=== PATIENT | female | born 1955 | race Caucasian/White ===

== ENCOUNTER 2017-11-16 22:01 | Observation (INO) ==
--- NOTE | 2017-11-16 22:05 | Emergency Department Note ---
Disposition Clinical Impression: Chest pain Qualifiers: Chest pain type: unspecified Qualified Code(s): R07.9 - Chest pain, unspecified Disposition: Admitted As Inpatient Condition: Fair Referrals: NONE,PCP [Primary Care Provider] - Forms: ED Satisfaction Letter General Adult HPI - General Chief complaint: ED Chest Pain Stated complaint: chest pain Nursing Notes Reviewed: Yes Vital Signs Reviewed: Yes - History of Present Illness HPI Narrative: 62-year-old female presents emergency Department with chest pain that started 4 hours ago. Patient states that this started from the back, radiated to the front, and felt like the chest pain sensation she had previously right before her bypass surgery. Patient states that she was on a trip from [place], riding back home when it started. Patient describes the chest pain as a pressure. She was also having nausea with it as well. Vomited once. Patient states that currently, she just feels weird like something is wrong in her chest. Patient has never been here at [facility]. Patient states that she was recently in the hospital. Patient states she fell at home. Patient has had no falls recently. Patient states that she has been unable to ambulate after breaking her right ankle. Patient currently not on any blood thinners. She denies any previous history of blood clots. Denies any unilateral leg swelling. - Related Data Allergies Allergy/AdvReac Type Severity Reaction Status Date / Time ciprofloxacin Allergy See Verified 11/16/17 22:14 Comments baclofen Allergy See Uncoded 11/16/17 22:14 Comments reopro Allergy See Uncoded 11/16/17 22:14 Comments tape Allergy Redness of Uncoded 11/16/17 22:14 Skin All systems ED: reviewed and negative except as stated. Review of Systems: As Per HPI Cardiovascular: Reports: chest pain. Denies: syncope Respiratory: Reports: dyspnea. Denies: cough Gastrointestinal: Reports: nausea, vomiting. Denies: abdominal pain Genitourinary: Denies: urgency, dysuria, frequency Musculoskeletal: Denies: back pain Integumentary: Denies: rash Neurological: Denies: headache, weakness, numbness, paresthesias Hematological/Lymphatic: Denies: easy bleeding Physical Exam - General General appearance: alert - Head Head exam: atraumatic, normocephalic - Eye Eye exam: Present: EOMI. Absent: scleral icterus - ENT ENT exam: normal oropharynx, mucous membranes moist - Neck Neck exam: Present: trachea midline. Absent: tenderness, meningismus - Chest Chest inspection: Present: normal inspection, symmetric chest wall rise - Respiratory Respiratory exam: Present: normal lung sounds bilaterally. Absent: respiratory distress, accessory muscle use - Cardiovascular Cardiovascular exam: Present: regular rate, normal rhythm, normal heart sounds - Abdominal Exam Abdominal exam: Present: soft, Non-Tender. Absent: distention, guarding, rebound - Expanded Lower Extremity Exam Lower leg exam: Absent: tenderness, swelling, palpable cord - Back Exam Back exam: Present: normal inspection, full ROM - Neurological Exam Neurological exam: Present: alert, oriented X3 - Psychiatric Psychiatric exam: Present: normal affect, normal mood - Skin Skin exam: Present: warm, dry, intact. Absent: diaphoresis Course Vital Signs Temperature 98.1 F 11/16/17 22:14 Pulse Rate 75 11/16/17 22:14 Respiratory Rate 20 11/16/17 22:14 Blood Pressure 134/89 11/16/17 22:14 O2 Sat by Pulse Oximetry 96 11/16/17 22:14 Temperature 98.1 F 11/16/17 22:14 Pulse Rate 68 11/17/17 00:41 Respiratory Rate 15 11/17/17 00:41 Blood Pressure 205/97 11/17/17 00:41 O2 Sat by Pulse Oximetry 96 11/17/17 00:41 Oxygen Delivery Oxygen Delivery Room Air Medical Decision Making - [facility] Narrative Medical decision making narrative: 62-year-old female presents to emergency department with concern for chest pain. Patient currently having chest pain 4 out of 10 right now. We will give patient aspirin. We will also give nitroglycerin. EKG does not reveal any evidence of STEMI, but has nonspecific ST changes. Troponin is within normal limits. Patient has elevated creatinine. She appears dry. We will hydrate her with fluids. Patient has an elevated d-dimer as there is some concern that she could possibly have a PE due to recent immobilization, inability to ambulate , and recent travel, with the chest pain. Chest x-ray did not reveal any evidence of cardiac abnormality. D-dimer was mildly elevated. We obtain a chest CTA. Revealed no evidence of pulmonary embolus. It did reveal some small bump lateral pulmonary nodules of which the patient is artery aware of. After speaking with patient, she reported that her creatinine was acting better than where her creatinine has been in the past. She has received a liter of fluids. Sublingual nitroglycerin relieved her symptoms completely. Patient was still hypertensive so we administered nitro paste. Patient hemodynamically stable and not in any acute distress at time of admission to the hospital. Patient agree with the plan for admission. Vital Signs Temperature 98.1 F 11/16/17 22:14 Pulse Rate 75 11/16/17 22:14 Respiratory Rate 20 11/16/17 22:14 Blood Pressure 134/89 11/16/17 22:14 O2 Sat by Pulse Oximetry 96 11/16/17 22:14 Temperature 98.1 F 11/16/17 22:14 Pulse Rate 68 11/17/17 00:41 Respiratory Rate 15 11/17/17 00:41 Blood Pressure 205/97 11/17/17 00:41 O2 Sat by Pulse Oximetry 96 11/17/17 00:41 Oxygen Delivery Oxygen Delivery Room Air Chest X-Ray 11/16/17 22:04 IMPRESSION: No significant findings in the chest. D/ / Shuan Phipps MD / Shaun Phipps MD Interpreting Provider: Shaun Phipps MD Chest CTA 11/17/17 00:00 IMPRESSION: No evidence of pulmonary embolism or acute pulmonary abnormality. Small bilateral pulmonary nodules measuring up to 0.4 cm. RECOMMENDATIONS: Fleischner Society guidelines for follow-up and management of incidentally detected pulmonary nodules: Multiple Solid Nodules: Nodule size less than 6 mm In a low-risk patient, no routine follow-up. In a high-risk patient, optional CT at 12 months. - Low risk patients include individuals with minimal or absent history of smoking and other known risk factors. - High risk patients include individuals with a history or smoking or known risk factors. Radiology 2017 http://pubs.[facility]na.org/doi/full/10.1148/radiol.[email or web address] D/ / Deshawn Sarkar MD / Deshawn Sarkar MD Interpreting Provider: Deshawn Sarkar MD - Lab Data Result diagrams: 11/16/17 22:14 11/16/17 22:14 Lab Results 11/16/17 11/16/17 11/16/17 Range/Units 22:14 22:14 22:14 WBC 6.7 (4.3-11.1) K/mcL RBC 3.76 L (3.82-4.97) M/mcL Hgb 11.0 L (11.5-15.4) g/dL Hct 35.0 L (35.3-44.9) % MCV 93.1 (83.0-100.0) fL MCH 29.3 (28.0-33.3) pg MCHC 31.4 L (31.6-35.5) g/dL RDW 14.3 (11.5-14.5) % Plt Count 200 (140-400) K/mcL MPV 10.5 (9.4-12.4) fL Immature Gran % 0.3 (0-4) % Seg Neutrophils % 71.9 % Lymphocytes % 16.7 % Monocytes % 6.0 % Eosinophils % 4.8 % Basophils % 0.3 % Neutrophils # 4.8 (1.6-8.9) K/mcL Lymphocytes # 1.1 (0.6-4.6) K/mcL Monocytes # 0.4 (0.0-1.3) K/mcL Eosinophils # 0.3 (0.0-0.6) K/mcL Basophils # 0.0 (0.0-0.2) K/mcL D-Dimer (0-500) ng/mLFEU Sodium 143 (136-145) mEq/L Potassium 3.7 (3.5-5.1) mEq/L Chloride 107 (98-107) mEq/L Carbon Dioxide 27 (23-29) mEq/L BUN 30 H (8-23) mg/dL Creatinine 1.59 H (0.60-1.20) mg/dL Est GFR ( Amer) 40 L (> 60) Est GFR (Non-Af Amer) 33 L (> 60) BUN/Creatinine Ratio 19 (6-26) Glucose 204 H (70-105) mg/dL Calculated Osmolality 308 H (280-300) Calcium 9.1 (8.6-10.3) mg/dL Troponin I < 0.03 (< 0.04) ng/mL B-Natriuretic Peptide 423 H (Less than 100) pg/mL 11/16/17 Range/Units 22:29 WBC (4.3-11.1) K/mcL RBC (3.82-4.97) M/mcL Hgb (11.5-15.4) g/dL Hct (35.3-44.9) % MCV (83.0-100.0) fL MCH (28.0-33.3) pg MCHC (31.6-35.5) g/dL RDW (11.5-14.5) % Plt Count (140-400) K/mcL MPV (9.4-12.4) fL Immature Gran % (0-4) % Seg Neutrophils % % Lymphocytes % % Monocytes % % Eosinophils % % Basophils % % Neutrophils # (1.6-8.9) K/mcL Lymphocytes # (0.6-4.6) K/mcL Monocytes # (0.0-1.3) K/mcL Eosinophils # (0.0-0.6) K/mcL Basophils # (0.0-0.2) K/mcL D-Dimer 847 H (0-500) ng/mLFEU Sodium (136-145) mEq/L Potassium (3.5-5.1) mEq/L Chloride (98-107) mEq/L Carbon Dioxide (23-29) mEq/L BUN (8-23) mg/dL Creatinine (0.60-1.20) mg/dL Est GFR ( Amer) (> 60) Est GFR (Non-Af Amer) (> 60) BUN/Creatinine Ratio (6-26) Glucose (70-105) mg/dL Calculated Osmolality (280-300) Calcium (8.6-10.3) mg/dL Troponin I (< 0.04) ng/mL B-Natriuretic Peptide (Less than 100) pg/mL - EKG Data EKG #1 EKG attestation: Yes I reviewed and interpreted this EKG. EKG results narrative: 22:05 Ventricular rate 77 bpm, LA interval 167 ms, QS duration 102 ms, QT 404 ms, QTC 435 ms Sinus rhythm with a ventricular rate 77 bpm. There are nonspecific ST segment changes on electrocardiogram. No previous study to compare this one to. No evidence of STEMI at this time.
[2017-11-16 22:25] LABS: Basophils % 0.3 %; Eosinophils # 0.3 K/mcL (0.0-0.6); Eosinophils % 4.8 %; Immature Granulocytes % 0.3 % (0-4); Lymphocytes # 1.1 K/mcL (0.6-4.6); Lymphocytes % 16.7 %; Mean Corpuscular HGB Conc 31.4 g/dL (31.6-35.5); Mean Corpuscular Hemoglobin 29.3 pg (28.0-33.3); Mean Corpuscular Volume 93.1 fL (83.0-100.0); Mean Platelet Volume 10.5 fL (9.4-12.4); Monocytes # 0.4 K/mcL (0.0-1.3); Neutrophils # 4.8 K/mcL (1.6-8.9); Platelet Count 200 K/mcL (140-400); Red Blood Count 3.76 M/mcL (3.82-4.97); Red Cell Distribution Width 14.3 % (11.5-14.5); Segmented Neutrophils % 71.9 %
[2017-11-16] MEDS ORDERED: Aspirin 81 MG TAB.CHEW PO ONE (22:33)
[2017-11-16 22:47] LABS: BUN/Creatinine Ratio 19 (6-26); Blood Urea Nitrogen 30 mg/dL (8-23); Calcium 9.1 mg/dL (8.6-10.3); Carbon Dioxide 27 mEq/L (23-29); Chloride 107 mEq/L (98-107); Glucose 204 mg/dL (70-105); Osmolality,Calculated 308 (280-300); Potassium 3.7 mEq/L (3.5-5.1); Sodium 143 mEq/L (136-145); Troponin I < 0.03 ng/mL (< 0.04); eGFR For African Americans 40 (> 60); eGFR For Non-African Americans 33 (> 60)
[2017-11-16] MEDS ORDERED: Isovue-370 500 ML INFUS..BTL IV ONE (22:52)
[2017-11-16] MEDS ORDERED: 0.9 % Sodium Chloride 1,000 ML IVC ONE (23:02)
[2017-11-16] MEDS: Nitroglycerin 0.4 MG TAB.SUBL SL PRN ×2 (23:10→23:18)
[2017-11-16] MEDS ORDERED: Nitroglycerin 1 INCH/GM PACKET TP ONE (23:42)
--- NOTE | 2017-11-17 01:02 | Emergency Department Note ---
Disposition Clinical Impression: Chest pain Disposition: Admitted As Inpatient Condition: Fair Referrals: NONE,PCP [Primary Care Provider] - Forms: ED Satisfaction Letter General Adult HPI - General Chief complaint: ED Chest Pain Stated complaint: chest pain Source: family - History of Present Illness Pain Scale: 2 - Related Data Allergies Allergy/AdvReac Type Severity Reaction Status Date / Time ciprofloxacin Allergy See Verified 11/16/17 22:14 Comments baclofen Allergy See Uncoded 11/16/17 22:14 Comments reopro Allergy See Uncoded 11/16/17 22:14 Comments tape Allergy Redness of Uncoded 11/16/17 22:14 Skin Cardiovascular: Reports: chest pain. Denies: syncope Respiratory: Reports: dyspnea. Denies: cough Gastrointestinal: Reports: nausea, vomiting. Denies: abdominal pain Genitourinary: Denies: urgency, dysuria, frequency Musculoskeletal: Denies: back pain Integumentary: Denies: rash Neurological: Denies: headache, weakness, numbness, paresthesias Hematological/Lymphatic: Denies: easy bleeding Past Medical History - Past Medical History Medical history: Reports: coronary artery disease, diabetes Psychiatric history: Reports: no psych history - Social History Smoking Status: Never smoker Smokeless Tobacco Status: No Alcohol use: Reports: none Drug use: Reports: none Physical Exam - General General appearance: alert Course Vital Signs Temperature 98.1 F 11/16/17 22:14 Pulse Rate 75 11/16/17 22:14 Respiratory Rate 20 11/16/17 22:14 Blood Pressure 134/89 11/16/17 22:14 O2 Sat by Pulse Oximetry 96 11/16/17 22:14 Temperature 98.1 F 11/16/17 22:14 Pulse Rate 68 11/17/17 00:41 Respiratory Rate 15 11/17/17 00:41 Blood Pressure 205/97 11/17/17 00:41 O2 Sat by Pulse Oximetry 96 11/17/17 00:41 Oxygen Delivery Oxygen Delivery Room Air Medical Decision Making - Lab Data Result diagrams: 11/16/17 22:14 11/16/17 22:14 Lab Results 11/16/17 11/16/17 11/16/17 Range/Units 22:14 22:14 22:14 WBC 6.7 (4.3-11.1) K/mcL RBC 3.76 L (3.82-4.97) M/mcL Hgb 11.0 L (11.5-15.4) g/dL Hct 35.0 L (35.3-44.9) % MCV 93.1 (83.0-100.0) fL MCH 29.3 (28.0-33.3) pg MCHC 31.4 L (31.6-35.5) g/dL RDW 14.3 (11.5-14.5) % Plt Count 200 (140-400) K/mcL MPV 10.5 (9.4-12.4) fL Immature Gran % 0.3 (0-4) % Seg Neutrophils % 71.9 % Lymphocytes % 16.7 % Monocytes % 6.0 % Eosinophils % 4.8 % Basophils % 0.3 % Neutrophils # 4.8 (1.6-8.9) K/mcL Lymphocytes # 1.1 (0.6-4.6) K/mcL Monocytes # 0.4 (0.0-1.3) K/mcL Eosinophils # 0.3 (0.0-0.6) K/mcL Basophils # 0.0 (0.0-0.2) K/mcL D-Dimer (0-500) ng/mLFEU Sodium 143 (136-145) mEq/L Potassium 3.7 (3.5-5.1) mEq/L Chloride 107 (98-107) mEq/L Carbon Dioxide 27 (23-29) mEq/L BUN 30 H (8-23) mg/dL Creatinine 1.59 H (0.60-1.20) mg/dL Est GFR ( Amer) 40 L (> 60) Est GFR (Non-Af Amer) 33 L (> 60) BUN/Creatinine Ratio 19 (6-26) Glucose 204 H (70-105) mg/dL Calculated Osmolality 308 H (280-300) Calcium 9.1 (8.6-10.3) mg/dL Troponin I < 0.03 (< 0.04) ng/mL B-Natriuretic Peptide 423 H (Less than 100) pg/mL 11/16/17 Range/Units 22:29 WBC (4.3-11.1) K/mcL RBC (3.82-4.97) M/mcL Hgb (11.5-15.4) g/dL Hct (35.3-44.9) % MCV (83.0-100.0) fL MCH (28.0-33.3) pg MCHC (31.6-35.5) g/dL RDW (11.5-14.5) % Plt Count (140-400) K/mcL MPV (9.4-12.4) fL Immature Gran % (0-4) % Seg Neutrophils % % Lymphocytes % % Monocytes % % Eosinophils % % Basophils % % Neutrophils # (1.6-8.9) K/mcL Lymphocytes # (0.6-4.6) K/mcL Monocytes # (0.0-1.3) K/mcL Eosinophils # (0.0-0.6) K/mcL Basophils # (0.0-0.2) K/mcL D-Dimer 847 H (0-500) ng/mLFEU Sodium (136-145) mEq/L Potassium (3.5-5.1) mEq/L Chloride (98-107) mEq/L Carbon Dioxide (23-29) mEq/L BUN (8-23) mg/dL Creatinine (0.60-1.20) mg/dL Est GFR ( Amer) (> 60) Est GFR (Non-Af Amer) (> 60) BUN/Creatinine Ratio (6-26) Glucose (70-105) mg/dL Calculated Osmolality (280-300) Calcium (8.6-10.3) mg/dL Troponin I (< 0.04) ng/mL B-Natriuretic Peptide (Less than 100) pg/mL Attestation Statement - Attestation Attestation: I examined this patient and my medical decision-making was reviewed with the Resident Physician, Dr. Pagan. I agree with the documented findings, disposition and treatment plan as described except to the extent set forth below. Patient is a 62-year-old white female with a prior history of coronary artery disease status post CABG who presents to the emergency department 4 hours after experiencing left-sided substernal chest pain. This pain began while she was traveling back from [place] and she decided to stop here for evaluation. Patient was concerned because this felt very similar to her pain that she had with her prior heart attack. Patient states she was still having pain 5 out of 10 in severity nonradiating associated with some mild nausea and one episode of emesis prior to arrival. Patient also currently has her right foot in a boot following fracture of the toe and has had decreased mobilization lower extremity for the past week. Patient denies any calf pain, no significant shortness of breath. Patient with no prior history of DVT or PE. I agree with patient's physical exam findings as documented. Vital signs are stable on arrival. EKG shows some subtle nonspecific ST changes but no old EKG for comparison. Patient received aspirin and nitroglycerin with complete relief of pain similar Nitropaste was ordered. Laboratory evaluation and chest x-ray were unremarkable CTA of the chest was negative for PE. Patient will be admitted for unstable angina case was discussed with the hospitalist who accepted patient for further management.
[2017-11-17] MEDS ORDERED: 0.9 % Sodium Chloride 1,000 ML IVC ONE (01:11)
--- NOTE | 2017-11-17 01:55 | Internal Med History&Physical ---
<Chaitanya Kwan - Last Filed: 11/17/17 02:48> Date of Encounter: 11/17/17 Time of Encounter: 01:47 Internal Medicine - H&P: HPI Chief complaint: chest pain Admitted From: Home Plans for Post Hospital Care: Home History of present illness: Ms. Davis is a 62 year old female pmhx of T2DM insulin dependent, anemia, CAD 2x sents to RCA in 1999 + CABG in 2012, CKD3, HTN, HLD presents with pressure chest pain that starts in the back and radiates to front and now radiates from front to back. Pain is 8/10, similar to previous ACS. Pain has steadily increased, and was relived with nitro in ED. Patient was driving back from [place] when she started developing this chest pain. Patient was with daughter. They stopped to get food, and she instantly vomited her food up. Pain continued getting worse and 4 hours later they stopped at [place]. Patient denies SOB, fever, chills, edema, n/t. Patient was hospitalized in 09/2017 for pneumonia and elevated blood sugars. Patient states she gets headaches when her blood pressure is high, she currently has headache. Past Med Surg Social Fam HX - Past Medical History Medical history: coronary artery disease, diabetes Additional medical history: anemia, chronic sinusitis, RLS, neuropathy, kidney dz Psychiatric history: no psych history - Past Surgical History Additional surgical history: stents - Social History Smoking Status: Never smoker Smokeless Tobacco Status: No Alcohol use: none Drug use: none Internal Medicine - H&P: Meds 3 Allergy/AdvReac Type Severity Reaction Status Date / Time ciprofloxacin Allergy See Verified 11/16/17 22:14 Comments baclofen Allergy See Uncoded 11/16/17 22:14 Comments reopro Allergy See Uncoded 11/16/17 22:14 Comments tape Allergy Redness of Uncoded 11/16/17 22:14 Skin All Systems PM: A 10-system review of systems was performed and is negative for pertinent findings except as documented above in the HPI. - Constitutional Constitutional: no chills, no fever(s), no night sweats - EENT Eyes: no change in vision, no discharge, no pain, no photophobia Ears: no ear discharge, no ear pain, no tinnitus Nose, mouth and throat: no dysphagia, no nasal discharge, no neck pain, no sore throat - Cardiovascular Cardiovascular ROS IM: chest pain, no diaphoresis, no dyspnea, no dyspnea on exertion, no lightheadedness, no palpitations, no syncope - Respiratory Respiratory: no cough, no dyspnea, no wheezing, no excessive phlegm production - Gastrointestinal Gastrointestinal: no abdominal pain, no diarrhea, no hematemesis, no hematochezia, no melena, no nausea, no vomiting - Genitourinary Genitourinary: no change in urinary stream, no dysuria, no flank pain, no hematuria - Musculoskeletal Musculoskeletal ROS IM: no numbness, no tingling - Integumentary Integumentary IM: no rash, no unusual bruising - Neurological Neurological ROS: no confusion, no convulsions, no focal weakness, no numbness, no tingling, no tremor(s) - Hematologic/Lymphatic Hematologic/Lymphatic: no easy bruising - Constitutional Vitals: Temp Pulse Resp BP Pulse Ox 98.1 F 68 15 205/97 96 11/16/17 22:14 11/17/17 00:41 11/17/17 00:41 11/17/17 00:41 11/17/17 00:41 General appearance: Present: cooperative, mild distress, pleasant, answers questions appropriately - Head Head exam: Present: atraumatic, normocephalic - Eye Eye exam: Present: PERRL, conjuntiva pink, sclera anicteric Pupils: Present: PERRL - Neck Neck exam general surgery: Present: supple, trachea midline. Absent: lymphadenopathy - Respiratory Respiratory exam: Present: CTAB. Absent: accessory muscle use, rales, rhonchi, wheezes - Cardiovascular Cardiovascular exam: Present: tachycardia. Absent: diastolic murmur, gallop, rubs, systolic murmur - GI/Abdominal GI/Abdominal exam: Present: normal bowel sounds, soft, no peritoneal signs. Absent: distended, guarding, hepatomegaly, rebound, rigid, tenderness - Extremities Exam Extremities exam: Present: warm, radial pulses palpable and symmetrical. Absent : calf tenderness, cyanotic, pedal edema Additional comments: patient has right foot brace where she has a headled fractured r foot. - Neurological Exam Neurological exam: Present: CN II-XII intact, oriented X3, no focal deficits. Absent: pronater drift, facial droop, speech deficit - Skin Skin exam: Present: dry, intact Internal Med - H&P Results - Labs CBC & Chem 7: 11/16/17 22:14 11/16/17 22:14 Labs: Short CBC 11/16/17 Range/Units 22:14 WBC 6.7 (4.3-11.1) K/mcL Hgb 11.0 L (11.5-15.4) g/dL Hct 35.0 L (35.3-44.9) % Plt Count 200 (140-400) K/mcL Neutrophils # 4.8 (1.6-8.9) K/mcL BMP 11/16/17 22:14 Sodium 143 Potassium 3.7 Chloride 107 Carbon Dioxide 27 BUN 30 H Creatinine 1.59 H Glucose 204 H Calcium 9.1 Cardiac Enzymes 11/16/17 Range/Units 22:14 Troponin I < 0.03 (< 0.04) ng/mL - Impressions ITS Impressions Chest X-Ray 11/16/17 22:04 IMPRESSION: No significant findings in the chest. D/ / Shaun Phipps MD / Shaun Phipps MD Interpreting Provider: Shaun Phipps MD Chest CTA 11/17/17 00:00 IMPRESSION: No evidence of pulmonary embolism or acute pulmonary abnormality. Small bilateral pulmonary nodules measuring up to 0.4 cm. RECOMMENDATIONS: Fleischner Society guidelines for follow-up and management of incidentally detected pulmonary nodules: Multiple Solid Nodules: Nodule size less than 6 mm In a low-risk patient, no routine follow-up. In a high-risk patient, optional CT at 12 months. - Low risk patients include individuals with minimal or absent history of smoking and other known risk factors. - High risk patients include individuals with a history or smoking or known risk factors. Radiology 2017 http://pubs.rsna.org/doi/full/10.1148/radiol.[email or web address] D/ / Deshawn Sarkar MD / Deshawn Sarkar MD Interpreting Provider: Deshawn Sarkar MD - Assessment and plan (1) Hypertensive emergency Current Visit: Yes Status: Acute Assessment and plan: BP on admission ~200/~100's with possible cardiac as end organ damage. Patient missed PM Rx. D-dimer was elevated in ED, CTA was performed and r/o PE. - goal MAP decrease 25% in first 2 hours - restart home RX; IV hydralazine + lopressor - monitor UOP, Cr, mental status (2) Chest pain Current Visit: Yes Status: Acute Assessment and plan: Chest pain is similar to previous CAD, occurred at rest. EKG showed sinus rhythm, and trops negative x1. HEART score 6, patient is moderate risk. - trend trop - consider cardiology consult if CP does not resolve with BP control. - provide O2 support when SpO2 drops below 92%, nitro, ASA - continue home Rx - hold ACEI due to possible ART on CKD - schedule stress Qualifiers: Chest pain type: unspecified Qualified Code(s): R07.9 - Chest pain, unspecified (3) Fracture of right foot affected by diabetic neuropathy Current Visit: Yes Status: Acute Assessment and plan: occurred previously. patient has peripheral neuropathy due to diabetes. Well healed currently. Qualifiers: Qualified Code(s): S92.901A - Unspecified fracture of right foot, initial encounter for closed fracture; E11.40 - Type 2 diabetes mellitus with diabetic neuropathy, unspecified (4) HTN (hypertension) Current Visit: Yes Status: Acute Assessment and plan: chronic. home meds include amlodipine, hydralazine, isosorbide dinitrate, lisinopril, metoprolol, torsemide. Qualifiers: Qualified Code(s): I10 - Essential (primary) hypertension (5) Hyperlipidemia Current Visit: Yes Status: Acute Assessment and plan: continue home statin Qualifiers: Qualified Code(s): E78.5 - Hyperlipidemia, unspecified (6) Diabetes type 2, uncontrolled Current Visit: Yes Status: Acute Assessment and plan: poorly controlled diabetes. patient religiously checks BG and does not miss doses of insulin. Patient's recent BG range is 40-600. - diabetic diet - low sliding scale - continue basaglar 160 Qualifiers: Qualified Code(s): E11.65 - Type 2 diabetes mellitus with hyperglycemia; Z79.4 - skilled nursing (current) use of insulin (7) Chronic anemia Current Visit: Yes Status: Acute Assessment and plan: hgb 11.0 on admission. currently stable, will continue to monitor (8) CKD stage 3 due to type 2 diabetes mellitus Current Visit: Yes Status: Acute Assessment and plan: reported by patient. Will continue to follow. Cr on admission 1.59 and eGFR 40 , baselines unknown. - renal diet - avoid nephrotoxins, renal dose. (9) CAD (coronary artery disease) Current Visit: Yes Status: Acute Assessment and plan: known hx of ACS. stent placed in RCA in 1999, had to be restented a few years after. CABG in 2013. Qualifiers: Qualified Code(s): I25.10 - Atherosclerotic heart disease of [place] coronary artery without angina pectoris (10) DVT prophylaxis Current Visit: Yes Status: Acute Assessment and plan: SQ heparin (11) Elevated brain natriuretic peptide (BNP) level Current Visit: Yes Status: Acute Assessment and plan: BNP elevated on admission. unsure if patient has CHF, review of her medications would suggest that she likely does. - echo ordered - Time Spent With Patient Total time spent is greater than 50% in coordination of care (as documented) at patient's floor/unit and/or counseling patient: <Kaela Prater - Last Filed: 11/17/17 03:05> Date of Encounter: 11/17/17 Time of Encounter: 01:30 Internal Medicine - H&P: HPI History of present illness: Ms. Davis is a 62 year old female All Systems PM: A 10-system review of systems was performed and is negative for pertinent findings except as documented above in the HPI. - Constitutional Vitals: Temp Pulse Resp BP Pulse Ox 98.1 F 68 15 205/97 96 11/16/17 22:14 11/17/17 00:41 11/17/17 00:41 11/17/17 00:41 11/17/17 00:41 Internal Med - H&P Results - Labs CBC & Chem 7: 11/16/17 22:14 11/16/17 22:14 - Attending Attestation I examined this patient and my medical decision-making was reviewed with the resident physician, Chaitanya Kwan. I agree with the documented findings, disposition and treatment plan as described with any changes as documented below. 62-year-old female patient with history of type 2 diabetes, hypertension, hyperlipidemia, coronary artery disease status post stents and CABG, chronic kidney disease stage III who presented to the ER with complaints of chest pain and high blood pressure. She was traveling back home from [place] when she began to have this chest pain. It initially started in the back and radiated to the front of the chest and across her shoulder. She had been doing well prior to this episode. She denies any palpitations. She does complain of headache. Chest pain improved after she received nitroglycerin and aspirin in the ER. On examination, patient is awake and alert. Heart sounds are normal. Breath sounds are normal. Chest x-ray does not show any acute process. CT angiogram does not show any dissection. EKG does not show any acute ST segment changes. Hypertensive emergency: Patient having had severe hypertension along with chest pain. Troponins are negative. We will place patient on intravenous medications to control her blood pressure better. Target systolic blood pressure of less than 180. Chest pain: Given her history of coronary artery disease and CABG, concern for ACS. Will place patient in hospital. Trend troponins. Telemetry monitoring. If troponins are negative and blood pressure improved, consider stress test. Diabetes mellitus type 2: Monitor blood sugars. Sliding scale insulin. Diabetic diet when patient is able to eat. Chronic kidney disease stage III: Unknown baseline. We will follow renal function closely especially as patient received IV contrast. Gentle hydration overnight. - Assessment and plan (1) Hypertensive emergency Current Visit: Yes Status: Acute (2) Chest pain Current Visit: Yes Status: Acute Qualifiers: Chest pain type: unspecified Qualified Code(s): R07.9 - Chest pain, unspecified (3) Fracture of right foot affected by diabetic neuropathy Current Visit: Yes Status: Chronic Qualifiers: Encounter type: subsequent encounter Fracture type: closed Fracture healing: with routine healing Qualified Code(s): S92.901D - Unspecified fracture of right foot, subsequent encounter for fracture with routine healing; E11.40 - Type 2 diabetes mellitus with diabetic neuropathy, unspecified (4) HTN (hypertension) Current Visit: Yes Status: Chronic Qualifiers: Qualified Code(s): I10 - Essential (primary) hypertension (5) Hyperlipidemia Current Visit: Yes Status: Chronic Qualifiers: Qualified Code(s): E78.5 - Hyperlipidemia, unspecified (6) Diabetes type 2, uncontrolled Current Visit: Yes Status: Chronic Qualifiers: Qualified Code(s): E11.65 - Type 2 diabetes mellitus with hyperglycemia; Z79.4 - skilled nursing (current) use of insulin (7) Chronic anemia Current Visit: Yes Status: Chronic (8) CKD stage 3 due to type 2 diabetes mellitus Current Visit: Yes Status: Chronic (9) CAD (coronary artery disease) Current Visit: Yes Status: Chronic Qualifiers: Qualified Code(s): I25.10 - Atherosclerotic heart disease of [place] coronary artery without angina pectoris (10) DVT prophylaxis Current Visit: Yes Status: Acute (11) Elevated brain natriuretic peptide (BNP) level Current Visit: Yes Status: Acute - Time Spent With Patient Total time spent is greater than 50% in coordination of care (as documented) at patient's floor/unit and/or counseling patient:
[2017-11-17] MEDS ORDERED: Naloxone 0.4 MG/ML INJ IVP PRN (02:22)
[2017-11-17] MEDS ORDERED: *HR* Metoprolol 5 MG/5 ML VIAL IVP PRN (02:28)
[2017-11-17] MEDS ORDERED: hydrALAZINE 25 MG TABLET PO ONE (02:30)
[2017-11-17] MEDS ORDERED: Insulin DETEMIR 100 UNIT/ML X5UNITS SQ ONE (02:33)
[2017-11-17] MEDS ORDERED: *HR* Dextrose 50 % in Water (Syg) 50 ML SYRINGE IVP PRN (02:35)
[2017-11-17] MEDS ORDERED: D5% in Water 1,000 ML IVC PRN (02:35)
[2017-11-17] MEDS ORDERED: Dextrose Gel 15 GM/37.5 ML TUBE PO PRN ×2 (02:35)
[2017-11-17 04:40] LABS: Prothrombin Time 10.9 Seconds (9.4-12.1)
[2017-11-17] MEDS: *HR* Heparin 5,000 UNIT/ML VIAL SQ SCH ×2 (04:45→18:39)
[2017-11-17 04:55] LABS: Chol/HDL Ratio 4.7 (0-4.9); Phosphorous 3.3 mg/dL (2.7-4.5)
[2017-11-17] MEDS: Insulin LISPRO 300 UNITS/3 ML VIAL SQ SCH ×4 (07:55→20:47)
[2017-11-17] MEDS: niCARdipine 40 MG/200 ML MLS IVC SCH ×2 (07:57→17:50)
[2017-11-17 09:08] LABS: Estimated Average Glucose 157 mg/dl; Hemoglobin A1C 7.1 %
--- NOTE | 2017-11-17 09:21 | Event Note ---
Date of Encounter: 11/17/17 Time of Encounter: 09:18 BP elevated, HTN crisis SBP > 200 Received IV hydralazine dose at 6 a.m in the ED which marked improvement - maybe too well Will attempt to spare IV nicardipine gtt if able Discussed home med with family - will restart norvasc 10 QD hydralazine 25 TID metoprolol 50 q AM, 25 q PM Isosorbide 30 BID Lisinopril 20 BID Avoiding rapid drop in BP Symptom better on bedside exam - headache prominent on admission- this is better
[2017-11-17] MEDS: Aspirin 81 MG TAB.CHEW PO SCH (11:17)
[2017-11-17] MEDS: Torsemide 20 MG TABLET PO SCH (11:18)
[2017-11-17] MEDS: amLODIPine 5 MG TABLET PO SCH (11:18)
[2017-11-17] MEDS: hydrALAZINE 25 MG TABLET PO SCH ×2 (16:13→20:46)
--- NOTE | 2017-11-17 17:19 | Electrocardiograph Report ---
[place] [id number] Test Date: 2017-11-16 Pat Name: Ashley Davis Department: 103 Room: [facility] Gender: F [employer]: SIXTO : 1955 Requested By: Russ Pagan Order Number: [id number] Reading MD: Melissa Burrows Measurements Intervals [place] Rate: 77 P: 47 ID: [id number] QRS: 8 QRSD: 102 T: 73 QT: 404 QTc: 435 Interpretive Statements SINUS RHYTHM NONSPECIFIC ST & T-WAVE ABNORMALITY Electronically Signed On 11-17-2017 17:18:25 EDT by Melissa Burrows
[2017-11-17] MEDS ORDERED: Acetaminophen 325 MG TABLET PO PRN (17:49)
[2017-11-17] MEDS: Lisinopril 20 MG TABLET PO SCH (20:46)
[2017-11-17] MEDS: rOPINIRole 1 MG TABLET PO SCH (22:24)
[2017-11-17] MEDS: Pregabalin 25 MG CAPSULE PO SCH (22:24)
[2017-11-18] MEDS: *HR* Heparin 5,000 UNIT/ML VIAL SQ SCH ×2 (05:18→17:49)
[2017-11-18] MEDS ORDERED: traMADol 50 MG TABLET PO PRN ×2 (05:29→09:08)
[2017-11-18] MEDS: niCARdipine 40 MG/200 ML MLS IVC SCH ×3 (06:34→15:51)
[2017-11-18] MEDS: hydrALAZINE 25 MG TABLET PO SCH ×3 (08:24→21:19)
[2017-11-18] MEDS: Lisinopril 20 MG TABLET PO SCH ×2 (08:25→21:19)
[2017-11-18] MEDS: Pregabalin 25 MG CAPSULE PO SCH ×3 (08:25→21:19)
[2017-11-18] MEDS: Aspirin 81 MG TAB.CHEW PO SCH (08:25)
[2017-11-18] MEDS: Torsemide 20 MG TABLET PO SCH (08:25)
[2017-11-18] MEDS: amLODIPine 5 MG TABLET PO SCH (08:25)
[2017-11-18] MEDS: Insulin LISPRO 300 UNITS/3 ML VIAL SQ SCH ×4 (08:26→20:54)
[2017-11-18 08:52] LABS: Calcium 8.8 mg/dL (8.6-10.3); Potassium 3.2 mEq/L (3.5-5.1)
[2017-11-18] MEDS ORDERED: Acetaminophen 325 MG TABLET PO PRN (09:08)
--- NOTE | 2017-11-18 14:02 | Internal Med Progress Note ---
Date of Encounter: 11/18/17 Time of Encounter: 14:00 - Assessment and plan (1) Chest pain Current Visit: Yes Status: Acute Assessment and plan: Chest pain is similar to previous CAD, occurred at rest. EKG showed sinus rhythm, and trops negative x1. Plan for nuclear stress test in am 2/2 to risk factors Qualifiers: Chest pain type: unspecified Qualified Code(s): R07.9 - Chest pain, unspecified (2) Fracture of right foot affected by diabetic neuropathy Current Visit: Yes Status: Chronic Assessment and plan: occurred previously. patient has peripheral neuropathy due to diabetes. Well healed currently. Qualifiers: Encounter type: subsequent encounter Fracture type: closed Fracture healing: with routine healing Qualified Code(s): S92.901D - Unspecified fracture of right foot, subsequent encounter for fracture with routine healing; E11.40 - Type 2 diabetes mellitus with diabetic neuropathy, unspecified (3) HTN (hypertension) Current Visit: Yes Status: Chronic Assessment and plan: chronic. home meds include amlodipine, hydralazine, isosorbide dinitrate, lisinopril, metoprolol, torsemide. Qualifiers: Hypertension type: essential hypertension Qualified Code(s): I10 - Essential (primary) hypertension (4) Hyperlipidemia Current Visit: Yes Status: Chronic Assessment and plan: continue home statin Qualifiers: Qualified Code(s): E78.5 - Hyperlipidemia, unspecified (5) Diabetes type 2, uncontrolled Current Visit: Yes Status: Chronic Assessment and plan: poorly controlled diabetes. patient religiously checks BG and does not miss doses of insulin. Patient's recent BG range is 40-600. - diabetic diet - low sliding scale - continue basaglar 160 Qualifiers: Qualified Code(s): E11.65 - Type 2 diabetes mellitus with hyperglycemia (6) Chronic anemia Current Visit: Yes Status: Chronic Assessment and plan: hgb 11.0 on admission. currently stable, will continue to monitor (7) CKD stage 3 due to type 2 diabetes mellitus Current Visit: Yes Status: Chronic Assessment and plan: reported by patient. Will continue to follow. Cr on admission 1.59 and eGFR 40 , baselines unknown. - renal diet - avoid nephrotoxins, renal dose. (8) CAD (coronary artery disease) Current Visit: Yes Status: Chronic Assessment and plan: known hx of ACS. stent placed in RCA in 1999, had to be restented a few years after. CABG in 2013. Qualifiers: Associated angina: with unspecified angina Qualified Code(s): I25.119 - Atherosclerotic heart disease of [place] coronary artery with unspecified angina pectoris (9) Hypertensive emergency Current Visit: Yes Status: Acute Assessment and plan: BP on admission ~200/~100's with possible cardiac as end organ damage. Patient missed PM Rx. D-dimer was elevated in ED, CTA was performed and r/o PE. - goal MAP decrease 25% in first 2 hours - restart home RX; IV hydralazine + lopressor - monitor UOP, Cr, mental status (10) DVT prophylaxis Current Visit: Yes Status: Acute Assessment and plan: SQ heparin (11) Elevated brain natriuretic peptide (BNP) level Current Visit: Yes Status: Acute Assessment and plan: BNP elevated on admission. unsure if patient has CHF, review of her medications would suggest that she likely does. - echo ordered - Time Spent With Patient Total time spent is greater than 50% in coordination of care (as documented) at patient's floor/unit and/or counseling patient: - Subjective Interval history: No acute events overnight - Constitutional Vitals: Temp Pulse Resp BP Pulse Ox 98.3 F 74 18 150/74 95 11/18/17 11:30 11/18/17 11:30 11/18/17 11:30 11/18/17 11:30 11/18/17 11:30 General appearance: Present: cooperative, mild distress, pleasant, answers questions appropriately - Head Head exam: Present: atraumatic, normocephalic - Eye Eye exam: Present: PERRL, conjuntiva pink, sclera anicteric Pupils: Present: PERRL - Neck Neck exam general surgery: Present: supple, trachea midline. Absent: lymphadenopathy - Respiratory Respiratory exam: Present: CTAB. Absent: accessory muscle use, rales, rhonchi, wheezes - Cardiovascular Cardiovascular exam: Present: RRR, +S1, +S2. Absent: diastolic murmur, gallop, rubs, systolic murmur - GI/Abdominal GI/Abdominal exam: Present: normal bowel sounds, soft, no peritoneal signs. Absent: distended, tenderness - Extremities Exam Extremities exam: Present: warm, radial pulses palpable and symmetrical. Absent : calf tenderness, cyanotic, pedal edema - Neurological Exam Neurological exam: Present: CN II-XII intact, oriented X3, no focal deficits. Absent: pronater drift, facial droop, speech deficit - Skin Skin exam: Present: dry, intact Internal Medicine: Result - Labs CBC & Chem 7: 11/16/17 22:14 11/18/17 08:09 Labs: BMP 11/18/17 08:09 Sodium 143 Potassium 3.2 L Chloride 109 H Carbon Dioxide 23 BUN 21 Creatinine 1.48 H Glucose 142 H Calcium 8.8 - ABG Interpretation ABG results: PT/INR, D-dimer PT 10.9 Seconds (9.4-12.1) 11/17/17 04:20 D-Dimer 847 ng/mLFEU (0-500) H 11/16/17 22:29 Consult Discharge Plan - Plan Referrals: NONE,PCP [Primary Care Provider] -
[2017-11-18] MEDS: rOPINIRole 1 MG TABLET PO SCH (17:49)
[2017-11-18] MEDS ORDERED: rOPINIRole 1 MG TABLET PO SCH (18:00)
[2017-11-19] MEDS: *HR* Heparin 5,000 UNIT/ML VIAL SQ SCH (04:46)
[2017-11-19] MEDS ORDERED: Regadenoson 0.4 MG/5 ML SYRINGE IVP ONE (05:54)
[2017-11-19 06:14] LABS: Basophils % 0.6 %; Eosinophils # 0.3 K/mcL (0.0-0.6); Eosinophils % 7.7 %; Hematocrit 33.2 % (35.3-44.9); Hemoglobin 10.8 g/dL (11.5-15.4); Immature Granulocytes % 0.3 % (0-4); Lymphocytes % 28.1 %; Mean Corpuscular HGB Conc 32.5 g/dL (31.6-35.5); Mean Corpuscular Hemoglobin 30.2 pg (28.0-33.3); Mean Corpuscular Volume 92.7 fL (83.0-100.0); Mean Platelet Volume 10.8 fL (9.4-12.4); Monocytes # 0.3 K/mcL (0.0-1.3); Monocytes % 8.6 %; Neutrophils # 1.9 K/mcL (1.6-8.9); Nucleated Red Blood Cells 0.6 /100 WBC (0); Platelet Count 174 K/mcL (140-400); Red Blood Count 3.58 M/mcL (3.82-4.97); Red Cell Distribution Width 13.8 % (11.5-14.5); Segmented Neutrophils % 54.7 %
[2017-11-19 06:40] LABS: Potassium 3.2 mEq/L (3.5-5.1)
[2017-11-19] MEDS: Insulin LISPRO 300 UNITS/3 ML VIAL SQ SCH ×2 (09:57→11:38)
[2017-11-19] MEDS: Pregabalin 25 MG CAPSULE PO SCH ×2 (10:01→14:00)
[2017-11-19] MEDS: amLODIPine 5 MG TABLET PO SCH (10:01)
[2017-11-19] MEDS: hydrALAZINE 25 MG TABLET PO SCH ×2 (10:02→14:01)
[2017-11-19] MEDS: Torsemide 20 MG TABLET PO SCH (10:02)
[2017-11-19] MEDS: Lisinopril 20 MG TABLET PO SCH (10:02)
[2017-11-19] MEDS: Aspirin 81 MG TAB.CHEW PO SCH (10:02)
[2017-11-19] MEDS ORDERED: Insulin DETEMIR 100 UNIT/ML X5UNITS SQ SCH (10:15)
[2017-11-19 11:29] VITALS: BP 165/67
--- NOTE | 2017-11-19 12:56 | Discharge Summary ---
Orders not resulted at time of discharge: Pending orders 11/18/17 13:33 NM garret perf SPECT multi [NM] Routine 11/20/17 04:00 Basic Metabolic Panel AM 0400 Basic Metabolic Panel AM 0400 CBC [Complete Blood Count] [HEME] AM 04011/21/17 04:00 Basic Metabolic Panel AM 0400 CBC [Complete Blood Count] [HEME] AM 04011/22/17 04:00 Basic Metabolic Panel AM 0400 CBC [Complete Blood Count] [HEME] AM 04011/23/17 04:00 Basic Metabolic Panel AM 0400 CBC [Complete Blood Count] [HEME] AM 0400 11/24/17 04:00 Basic Metabolic Panel AM 0400 CBC [Complete Blood Count] [HEME] AM 0400 Date of Encounter: 11/19/17 Time of Encounter: 12:50 - Discharge Diagnosis (1) Chest pain Priority: Primary Status: Acute Assessment and Plan: 62 year old female pmhx of T2DM insulin dependent, anemia, CAD 2x sents to RCA in 1999 + CABG in 2012, CKD3, HTN, HLD presents with pressure chest pain that starts in the back and radiates to front and now radiates from front to back. She was also noted to have uncontrolled blood pressures with BP elevated at 205/ 97. She was ordered an IV nicardipine drip which ended up not being given as BP was controlled on her home po meds once they were restarted. She had a nuclear stress test done for her chest pain which came back negative for ischemia. She was discharged once her BP was stable on po antihypertensives. She admitted to being depressed and declined to see psych. We started her on zoloft 50mg po daily. She will follow up with her PCP Qualifiers: Chest pain type: unspecified Qualified Code(s): R07.9 - Chest pain, unspecified (2) Fracture of right foot affected by diabetic neuropathy Priority: Secondary Status: Chronic Qualifiers: Encounter type: subsequent encounter Fracture type: closed Fracture healing: with routine healing Qualified Code(s): S92.901D - Unspecified fracture of right foot, subsequent encounter for fracture with routine healing; E11.40 - Type 2 diabetes mellitus with diabetic neuropathy, unspecified (3) HTN (hypertension) Priority: Secondary Status: Chronic Qualifiers: Hypertension type: essential hypertension Qualified Code(s): I10 - Essential (primary) hypertension (4) Hyperlipidemia Priority: Secondary Status: Chronic Qualifiers: Qualified Code(s): E78.5 - Hyperlipidemia, unspecified (5) Diabetes type 2, uncontrolled Priority: Secondary Status: Chronic Qualifiers: Qualified Code(s): E11.65 - Type 2 diabetes mellitus with hyperglycemia (6) Chronic anemia Priority: Secondary Status: Chronic (7) CKD stage 3 due to type 2 diabetes mellitus Priority: Secondary Status: Chronic (8) CAD (coronary artery disease) Priority: Secondary Status: Chronic Qualifiers: Associated angina: with unspecified angina Qualified Code(s): I25.119 - Atherosclerotic heart disease of [place] coronary artery with unspecified angina pectoris (9) Hypertensive emergency Priority: Secondary Status: Acute (10) DVT prophylaxis Priority: Secondary Status: Acute (11) Elevated brain natriuretic peptide (BNP) level Priority: Secondary Status: Acute Hospital course: Ms. Davis is a 62 year old female - Time Spent with Patient Total time spent providing and/or coordinating discharge services: - Discharge Medications Prescriptions: Sertraline [Zoloft] 50 mg PO DAILY #30 tablet Home Medications: Allopurinol [Zyloprim 100 MG] 100 mg PO DAILY 11/17/17 [History] Amitriptyline [Elavil] 50 mg PO HS 11/17/17 [History] Amlodipine/Atorvastatin [Caduet 10 mg-80 mg Tablet] 1 tab PO DAILY 11/17/17 [ History] Aspirin [Lo-Dose Aspirin EC] 81 mg PO DAILY 11/17/17 [History] Fenofibrate Nanocrystallized [Triglide] 160 mg PO DAILY 11/17/17 [History] Insulin Glargine,Hum.rec.anlog [Basaglar Kwikpen U-100] 40 unit SQ QPM 11/17/17 [History] Isosorbide DInitrate [Isosorbide Dinitrate] 30 mg PO BID 11/17/17 [History] Lisinopril [Zestril] 20 mg PO BID 11/17/17 [History] Metoprolol [Lopressor] 25 mg PO QPM 11/17/17 [History] Metoprolol [Lopressor] 50 mg PO QAM 11/17/17 [History] Montelukast [Singulair] 10 mg PO DAILY 11/17/17 [History] Pregabalin [Lyrica] 25 mg PO TID 11/17/17 [History] Ropinirole HCl [Requip] 1 mg PO QPM 11/17/17 [History] Tramadol HCl [Ultram] 50 mg PO QID PRN 11/17/17 [History] hydrALAZINE [HydrALAZINE] 25 mg PO Q8HR 11/17/17 [History] Sertraline [Zoloft] 50 mg PO DAILY #30 tablet 11/19/17 [Rx] Allergies/Adverse Reactions: 3 Allergy/AdvReac Type Severity Reaction Status Date / Time ciprofloxacin Allergy See Verified 11/16/17 22:14 Comments baclofen Allergy See Uncoded 11/16/17 22:14 Comments reopro Allergy See Uncoded 11/16/17 22:14 Comments tape Allergy Redness of Uncoded 11/16/17 22:14 Skin Date of admission: 11/17/17 02:57 Primary care physician: PCP NONE - Constitutional Vitals: Temp Pulse Resp BP Pulse Ox 98.5 F 63 18 165/67 95 11/19/17 11:28 11/19/17 11:28 11/19/17 11:28 11/19/17 11:28 11/19/17 11:28 General appearance: Present: cooperative, mild distress, pleasant, answers questions appropriately - Head Head exam: Present: atraumatic, normocephalic - Eye Eye exam: Present: PERRL, conjuntiva pink, sclera anicteric Pupils: Present: PERRL - Neck Neck exam general surgery: Present: supple, trachea midline. Absent: lymphadenopathy - Respiratory Respiratory exam: Present: CTAB. Absent: accessory muscle use, rales, rhonchi, wheezes - Cardiovascular Cardiovascular exam: Present: RRR, +S1, +S2. Absent: diastolic murmur, gallop, rubs, systolic murmur - GI/Abdominal GI/Abdominal exam: Present: normal bowel sounds, soft, no peritoneal signs. Absent: distended, tenderness - Extremities Exam Extremities exam: Present: warm, radial pulses palpable and symmetrical. Absent : calf tenderness, cyanotic, pedal edema - Neurological Exam Neurological exam: Present: CN II-XII intact, oriented X3, no focal deficits. Absent: pronater drift, facial droop, speech deficit - Skin Skin exam: Present: dry, intact - Patient Status Disposition: Home, Self-Care Condition: Fair - Discharge Instructions Instructions: Chest Pain (DC), Chronic Hypertension (DC) Follow Up With: Coleman Holt MD [Non-Partnered Physician] - 12/03/17 9:30 am (Please follow up as schedule...) NONE,PCP [Primary Care Provider] -
[2017-11-19] MEDS ORDERED: Potassium Chloride Elixir 20 MEQ/15 ML UDC PO SCH (13:00)
== END 2017-11-19 15:02 | disposition home or self-care (01) ==
LOC: EMEROO 22:01 → 2SOUTHHOLD 22:01 → 2ANU 11-18 06:43
PROVIDERS: ADMIT Internal Medicine; ATTEND Internal Medicine